=== PATIENT | male | born 1990 | race African-American/Black ===

== ENCOUNTER 2016-09-14 17:24 | Emergency (ER) | payer OTHER ==
[~2016-09-14] VITALS: Ht 182.9 cm; Wt 108.9 kg
--- NOTE | 2016-09-14 18:23 | Emergency Room Report ---
History of Present Illness General Chief Complaint: Flu Like Symptoms Source: Patient Present Illness HPI 26 YO male presents to the ED c/o moderate post nasal drainage with right sided nasal and frontal area pressure, and nasal congestion x 2 weeks. Denies fevers, chills reports intermittent cough due to nasal drainage posteriorly. Patient denies trauma or fall. denies eye pain, or swelling. denies sneezing. Denies fevers, chills, rashes. Denies CP, Palpitations, LOC, AMS, dizziness, Changes in Vision, Sensation, paresthesias, or a sudden severe headache. Allergies: Coded Allergies: No Known Allergies (Unverified , 09/14/16) Patient History Past Medical History: see triage record Past Surgical History: none Pertinent Family History: none Reviewed Nursing Documentation: PMH: Agreed, PSxH: Agreed Nursing Documentation-PMH Past Medical History: No Stated History Review of Systems All Other Systems: negative except mentioned in HPI Physical Exam Vital Signs Date Time Temp Pulse Resp B/P Pulse Ox O2 Delivery O2 Flow Rate FiO2 09/14/16 17:50 98.2 76 20 123/77 100 Room Air Sp02 EP Interpretation: reviewed, normal General Appearance: no apparent distress, alert, GCS 15, non-toxic Head: normocephalic, atraumatic Eyes: bilateral eye PERRL, bilateral eye normal inspection ENT: hearing grossly normal, normal pharynx, no angioedema, normal voice, TMs + canals normal, uvula midline, nasal congestion - right sided nasal congestion , no purulence noted, other - TTP to the right maxillary and frontal sinuses. , no erythema, bruising Neck: full range of motion, supple/symm/no masses Respiratory: lungs clear, normal breath sounds, speaking full sentences Cardiovascular #1: regular rate, rhythm, no edema Genitourinary: normal inspection, no CVA tenderness Musculoskeletal: back normal, gait/station normal, normal range of motion, non- tender Neurologic: alert, oriented x3, responsive, motor strength/tone normal, sensory intact, speech normal Psychiatric: judgement/insight normal, memory normal, mood/affect normal Skin: normal color, no rash, warm/dry, well hydrated Lymphatic: no adenopathy Medical Decision Making PA Attestation Dr. Mosqueda is my supervising Physician whom patient management has been discussed with. Diagnostic Impression: Primary Impression: Sinusitis Qualified Codes: J32.0 - Chronic maxillary sinusitis ER Course Pt. presents to the ED c/o moderate post nasal drainage with right sided nasal and frontal area pressure, and nasal congestion x 2 weeks. Ddx considered but are not limited to sinusitis, orbital cellulitis, URI, pneumonia, PE, strep pharyngitis, meningitis. Vital signs: Pt. is afebrile, the remaining VS are WNL H&PE are most consistent for sinusitis due to unilateral symptoms lasting longer than 10 days with no relief from OTC medications, and hx of deviated septum will treat pt clinically. ORDERS: none required at this time, the diagnosis is clinical ED INTERVENTIONS: None required at this time. --PT. EDUCATION: Discussed antibiotic resistance with inappropriate prescribing of antibiotics for viral illnesses. Discussed signs and symptoms to indicate viral illness versus bacterial illness. d/w pt. that he needs to follow up with ENT Specialist. DISCHARGE: At this time pt. is stable for d/c to home. Will provide printed patient care instructions, and any necessary prescriptions. Care plan and follow up instructions have been discussed with the patient prior to discharge. Last Vital Signs Date Time Temp Pulse Resp B/P Pulse Ox O2 Delivery O2 Flow Rate FiO2 09/14/16 17:50 98.2 76 20 123/77 100 Room Air Disposition: HOME, SELF-CARE Condition: Stable Scripts Mometasone Furoate (NASONEX) 17 Gm Nimitz.pump 2 SPRAYS NASAL DAILY, #17 GM 0 Refills Prov: Clarissa Howard 09/14/16 Amoxicillin/Potassium Clav 875-125* (AUGMENTIN 875-125 TABLET*) 1 Each Tablet 1 TAB ORAL TWICE A DAY for 10 Days, #20 TAB Prov: Clarissa Howard 09/14/16 Referrals: [facility],REFERRING (PCP) Patient Instructions: Sinusitis, Adult, [id number] Additional Instructions: Take medications as directed. Follow up with a Primary Care Provider in 3-5 days for ENT SPECIALIST REFERRAL, even if your symptoms have resolved. --Please review list of primary care clinics, if you do not already have a primary care provider Return sooner to ED if new symptoms occur, or current symptoms become worse. - Please note that this Emergency Department Report was dictated using [employer] room supervisor technology software, occasionally this can lead to erroneous entry secondary to interpretation by the dictation equipment. Clarissa Howard Sep 14, 2016 18:23
[2016-09-14] MEDS ORDERED: AUGMENTIN 875-1 EAC1 ORAL (18:26)
[2016-09-14] MEDS ORDERED: NASONEX17 GM NASAL (18:26)
[2016-09-14 18:35] VITALS: BP 124/76
== END 2016-09-14 18:35 | disposition home or self-care (01) ==
LOC: EMR 18:00
DX: J32.0 Chronic maxillary sinusitis (principal)
CPT/HCPCS: 99284

== ENCOUNTER 2017-02-27 17:47 | Emergency (ER) | payer OTHER ==
[~2017-02-27] VITALS: Ht 190.5 cm; Wt 111.1 kg
[~2017-02-27 17:47] MED LIST: AUGMENTIN 875-1 EAC1 ORAL; NASONEX17 GM NASAL
[2017-02-27] MEDS ORDERED: NKM (18:26)
[2017-02-27 18:33] VITALS: BP 136/83
[2017-02-27] MEDS ORDERED: Azithromycin 250mg tab ORAL ONE (18:45)
[2017-02-27] MEDS ORDERED: Lidocaine 1% MPF 10mg/ml 5ml INJ ONE (18:45)
[2017-02-27] MEDS ORDERED: VALACYCLOVIR500 MG ORAL (19:16)
[2017-02-27 19:24] VITALS: BP 136/83
--- NOTE | 2017-02-27 23:40 | Emergency Room Report ---
History of Present Illness General Chief Complaint: Male Urogenital Problems Source: Patient Present Illness HPI The patient is a 26-year-old male presenting for possible STD. He states that he was with a new female partner recently and is now experiencing penile discharge and dysuria for the past 3 days. Discharge described as yellow. Pain is a 10 out of 10 burning sensation which occurs with urination. He denies any abdominal pain. He also admits to a rash she saw on the shaft of his penis yesterday. He states that this is new for him. He denies pain. He denies any other symptoms including fever, chills, back pain, hematuria, testicular pain Allergies: Coded Allergies: No Known Allergies (Unverified , 09/14/16) Patient History Past Medical History: see triage record Pertinent Family History: none Reviewed Nursing Documentation: PMH: Agreed, PSxH: Agreed Review of Systems All Other Systems: negative except mentioned in HPI Physical Exam Vital Signs Date Time Temp Pulse Resp B/P (MAP) Pulse Ox O2 Delivery O2 Flow Rate FiO2 02/27/17 18:23 97.9 76 17 136/83 98 Room Air Sp02 EP Interpretation: reviewed, normal General Appearance: no apparent distress, alert, GCS 15, non-toxic Head: normocephalic, atraumatic Eyes: bilateral eye normal inspection, bilateral eye PERRL ENT: hearing grossly normal, normal pharynx, no angioedema, normal voice Genitourinary: normal inspection, no CVA tenderness, scrotum normal, other - 3 shallow ulcers noted on the distal shaft of the penis. Nontender Musculoskeletal: back normal, gait/station normal, normal range of motion, non- tender Neurologic: alert, oriented x3, responsive, motor strength/tone normal, sensory intact, speech normal Psychiatric: judgement/insight normal, memory normal, mood/affect normal, no suicidal/homicidal ideation Skin: normal color, no rash, warm/dry, well hydrated Lymphatic: no adenopathy Medical Decision Making PA Attestation Dr. Mills is my supervising physician. Patient management was discussed with my supervising physician Diagnostic Impression: Primary Impression: STD (male) ER Course The patient is a 26-year-old male presenting for possible STD. Differential diagnoses considered but not limited to: Gonorrhea, Chlamydia, herpes, urinary tract infection, among others Physical exam: Afebrile. No apparent distress Abdomen soft. Nontender : There is yellow discharge noted from the tip of the penis. There are 3 shallow ulcers noted at the distal shaft. Nontender. Otherwise exam unremarkable The patient is treated for gonorrhea and chlamydia. He will also be given prescription for suspected herpes. ER precautions are given Last Vital Signs Date Time Temp Pulse Resp B/P (MAP) Pulse Ox O2 Delivery O2 Flow Rate FiO2 02/27/17 18:33 97.9 17 136/83 98 Room Air 02/27/17 18:23 76 Status: improved Disposition: HOME, SELF-CARE Condition: Improved Scripts Valacyclovir Hcl* (VALTREX*) 500 Mg Tablet 1000 MG ORAL TWICE A DAY for 7 Days, TAB Prov: WOLFGANG IRVIN 02/27/17 Referrals: [facility],REFERRING (PCP) Patient Instructions: Sexually Transmitted Disease, Safe Sex Additional Instructions: I discussed my findings with the patient. All questions and concerns have been answered. Treatment and medication compliance have been addressed. I advised the patient that they need to follow up with PMD in 3-5 days. Return to ED if symptoms worsen, new symptoms arise, or if needed for any reason. Patient verbalized understanding of discharge instructions. WOLFGANG IRVIN Feb 27, 2017 23:40
== END 2017-02-27 19:24 | disposition home or self-care (01) ==
LOC: EMR 19:15
DX: A64 Unspecified sexually transmitted disease (principal)
CPT/HCPCS: 96372; 99283; J0696; Q0144